=== PATIENT | female | born 1985 | race Caucasian/White ===

== ENCOUNTER → 2017-05-03 | Day surgery (SDC) | payer OTHER ==
[~2017-05-03] VITALS: Ht 157.5 cm; Wt 66.4 kg
[2017-05-03] VITALS (8 sets, daily range): BP systolic 99–127; BP diastolic 47–70; PULSE 86–93; RESP 14–20; O2SAT 97–100
[~2017-05-03] MED LIST: AGM875T PO; Atropine 0.4 mg/mL Inj IVPUSH PRN; Belladonna Alk-Opium 60 mg Rectal Suppository RECTAL ONE; Dexamethasone 4 mg/mL Inj IVPUSH PRN; EPHEDrine Sulfate 50 mg/mL Inj IVPUSH PRN; HYDR-4003 PO; HYDROmorphone 1 mg/mL Inj IVPUSH PRN; LEVO75TA4 PO; Labetalol 5 mg/mL 20 mL Inj IV PRN; Lactated Ringer's 1,000 ML IV ONE; Lactated Ringer's 1,000 ML IV SCH; Lactated Ringer's 500 ML IV PRN; ONDA4TAB6 PO; Ondansetron 2 mg/mL 2 mL Inj IVPUSH PRN; Ondansetron 2 mg/mL 2 mL Inj ONE; Phenylephrine 10,000 mCg/mL Inj IVPUSH PRN; Propofol 10 mg/mL 20 mL Inj ONE; fentaNYL-PF 50 mCg/mL 2 mL Inj IVPUSH PRN; fentaNYL-PF 50 mCg/mL 2 mL Inj ONE; hydrALAZINE 20 mg/mL Inj IVPUSH PRN; levoFLOXacin 500 mg/100 mL D5W Premix IV ONE
--- NOTE | 2017-05-03 16:34 | PCM.HPANE ---
Patient Data Surgeon Admitting Provider: Attending Provider:Fatuma Jung MD Primary Care Physician:Rosalina Bryant MD Other Provider:Gladis Perezingham Anesthesia Reason for Visit Rt Ureteral Stone Ht/WT & BMI Height (Feet): 5 Height (Inches): 2 Weight (Kilograms): 66.4 Body Mass Index 26.00 Allergies Coded Allergies: ciprofloxacin (Verified Allergy, Intermediate, RASH. HIVES, 05/03/17) Past Anesthesia History Anesthesia History: Denies:: Abnormal Airway, Anesthesia Reactions, Difficult Intubation, Fam Anesthesia Reaction, Fam Malignant Hypertherm, Malignant Hyperthermia Diabetes History Hx Diabetes?: No MRSA MRSA: No Medications Hypertension Medication: No Home Meds Incl Beta Kedar: No Reported Medications Amoxicillin/Clav K 875-125 mg 875 Mg Tab1 Tablet PO BID #20 TABLET Ref 0 05/03/17 Hydrocodone-Acetaminophen 5-325 mg 1 Each Tablet1 Tablet PO Q4H PRN For Pain Ref 0 05/03/17 Ondansetron (Zofran)4 Mg Tablet4 Mg PO Q4H PRN For Nausea 05/03/17 Levothyroxine 75 Mcg [id number] Mcg PO DAILY Ref 0 05/03/17 History History of ENT Problems?: No HEENT History: Denies:: Abnormal Airway Cataracts Difficult Intubation Dysphagia Glaucoma Hearing Problem Sinus Problem TMJ Denture Type: None Teeth Condition: Within Normal Limits Hx of Heart Problems?: No Cardiovascular History: Denies:: AICD Abdominal Aortic Aneurism Atrial Fibrillation Cardiac Surgery Chest Pain Congestive Heart Failure Coronary Artery Disease Edema Heart Murmur Hypertension Irregular Heartbeat Pacemaker Peripheral Vascular Rheumatic Fever Thrombophlebitis Valvular Heart Disease Hx of Respiratory Problem?: No Respiratory History: Positive for:: Asthma (EXERCISE INDUCED ASTHMA IN HIGH ALTITUDES) Denies:: COPD Chest Surgery Cough Dyspnea Emphysema Hemoptysis Oxygen Administration Pneumonia Pulmonary Embolism Tuberculosis Use of C-PAP Machine Use of Inhalers / NEBS Hx Neurologic Problems?: No Neurological History: Denies:: Alzheimer's Disease CVA Dementia Dizziness Headaches Multiple Sclerosis Parkinson's Disease Seizures TIA Hx of GI Problems?: No Hx of Problems?: No Genitourinary History: Positive for:: Kidney Stones (THIRD EPISODE IN 7 YEARS) Denies:: HX of Hemodialysis Urinary Tract Infection HX of Peritoneal Dialysis: No Female Hx: Denies:: Currently Endometriosis Pelvic Inflammatory Problems with Breasts? Skin History: Denies:: History Skin Disorders? Pressure Ulcers Hx Musculoskeletal Problems?: No Musculoskeletal History: Denies:: Back Injury Degenerative Joint Fibromyalgia Joint Replacement Musculoskeletal Trauma Myasthenia Gravis Osteoarthritis Rheumatoid Arthritis Systemic Lupus Hx of Psycho/Social Problems?: No Psycho Social History: Denies:: Anxiety Bipolar Disorder Hx Depression Suicide Attempt Hx Surgeries?: Yes Hx Any Other Health Problems?: No Other History: Positive for:: Hospitalization Thyroid Disease (HYPOTHRYOIDISM) Denies:: Cancer Endocrine Disease History Blood Transfusions: Positive for:: Accept Blood Products? Denies:: Blood Transfuse Reaction Blood Transfusions Hx Diabetes: No Hx Alcohol Use: Yes (SOCIALLY)Hx Substance Use: NoHave You Smoked inLast 12 mo : No Stop/Bang Risk Assessment Category Category 1A: Patient has history of documented sleep apnea, and HAS NOT received any narcotic, sedative or anesthesia administration during this stay. Category 1B: Patient has history of documented sleep apnea, and HAS received any narcotic , sedative or anesthesia administration during this stay Category 2: Patient has SUSPECTED Obstructive Sleep Apnea, and HAS received any narcotic , sedative or anesthesia administration during this stay. Category 3: Patient has SUSPECTED Obstructive Sleep Apnea and HAS NOT received narcotic, sedative or anesthesia administration during this stay. Category 4: Outpatient in Procedural Areas with known sleep apnea or who screen positive for High Risk via the STOP/BANG questionnaire. Exam Exam Vital Signs Vital Signs Date Time Temp Pulse Resp B/P Pulse Ox O2 Delivery O2 Flow Rate FiO2 05/03/17 14:00 36.8 87 14 127/69 100 Room Air General Appearance: Alert, Oriented X3, Cooperative HEENT/AIRWAY: MP 1, Neck Movement Lungs: Clear to Auscultation Heart: Exam Unremarkable Meds/Labs/Diagnostics Admission Meds Current Medications Acetaminophen 1000 mg 1,000 mg STK-MED ONCE IV Last administered on 05/03/17 16:27; Start 05/03/17 at 13:57; Stop 05/03/17 at 13:59; Status DC Lactated Ringer's (Lr) 1,000 ml @ ud STK-MED ONCE IV Last administered on 05/03 14:00; Start 05/03/17 at 14:00; Stop 05/03/17 at 14:23; Status DC Plan Impression Patient chart reviewed, patient interviewed and anesthestic plan with risks, benefits, and alternatives discussed, and informed consent obtained. ASA Physical Status: ASA1 Normal Healthy Anesthetic Plan: GA Bene/Risks/Altern/Consents: Yes HP Complete Prior to Induction: Yes Curtis Laureano MD May 03, 2017 16:34
--- NOTE | 2017-05-03 17:27 | PCM.ANEP1 ---
Post Anesthesia PACU Phase 1 Assessment Vital Signs Vital Signs Date Time Temp Pulse Resp B/P Pulse Ox O2 Delivery O2 Flow Rate FiO2 05/03/17 14:00 36.8 87 14 127/69 100 Room Air Anesthetic Administered: GA Level of Alertness: Awake, talking GUZMAN's with Equal Strength: Yes Pain: No Nausea or Vomiting: No CV Function & Hydration Stable: Yes Airway Device: Oxygen Delivery: Room Air Lungs: Clear to Auscultation PACU Phase 2 Assessment Complications: No Follow up Care: No Patient Instructions Provided: N/A Curtis Laureano MD May 03, 2017 17:27
--- NOTE | 2017-05-03 18:16 | OP ---
[address] [address] OPERATIVE REPORT PATIENT: SARA MICHEL : 1985 MR#: [id number] ADMIT: 05/03/2017 JOB ID: [id number] DATE OF SURGERY: 05/03/2017 SURGEON: Fatuma Jung MD ANESTHESIOLOGIST: Curtis Laureano MD ANESTHESIA: General. PREOPERATIVE DIAGNOSIS(ES): 1. Obstructing 8 mm right ureteropelvic junction calculus. 2. Right pyelonephritis (culture pending). POSTOPERATIVE DIAGNOSIS(ES): 1. Obstructing 8 mm right ureteropelvic junction calculus. 2. Right pyelonephritis (culture pending). OPERATION PERFORMED: 1. Cystoscopy and right ureteral stone manipulation without removal. 2. Placement of right ureteral stent (6-Czech x 22-32 cm multi-length). FINDINGS: Urethra normal. Bladder urothelium mildly hyperemic, with a moderate amount of amorphous debris suspended and lying dependently within the bladder. The ureteral orifices were grossly normal. No attempts were made to localize the stone, as she is grossly infected with evidence of pyelonephritis. PROCEDURE SUMMARY: The patient was positioned in supine and was administered general anesthesia. She was then repositioned in semilithotomy and the lower abdomen, genitalia, and groin were prepped and draped in sterile fashion. The 22-Czech panendoscope was then passed through the lower urinary tract with findings as described above. Next, a 0.35 Glidewire was advanced to the right collecting system under direct and fluoroscopic guidance. Over this, a 6-Czech x 22-32 cm multilength stent was selected and this was advanced over the wire and positioned in the right collecting system satisfactorily under direct and fluoroscopic guidance. NO RETRIEVAL LINE WAS LEFT ATTACHED. The bladder was then drained completely. All instrumentation removed. The patient was repositioned in supine. She was awakened, transferred to a gurney, and transferred to recovery in stable condition.
== END | disposition home or self-care (01) ==
LOC: SAS 13:15
PROVIDERS: ATTEND Specialist
DX: N20.1 Calculus of ureter (principal)
CPT/HCPCS: 52330; 52332; 76000; J0131; J2405; J2704; J3010; J7120

== ENCOUNTER → 2017-05-16 | Day surgery (SDC) | payer OTHER ==
[~2017-05-16] VITALS: Ht 157.5 cm; Wt 63.5 kg
[2017-05-16] VITALS (8 sets, daily range): BP systolic 108–123; BP diastolic 66–98; PULSE 80–89; RESP 7–17; O2SAT 97–99
[~2017-05-16] MED LIST changes: +Acetaminophen IV 1,000 MG in IV Premix 1 EACH IV ONE; +Albuterol-Ipratropium 3 mL Inhalation Solution NEB PRN; -Belladonna Alk-Opium 60 mg Rectal Suppository RECTAL ONE; +CeFAZolin Inj 2 GM in IV Premix 1 EACH IV ONE; +CeFAZolin Inj 2 gm / 50mL D5W IV ONE; +Dexamethasone 4 mg/mL Inj ONE; +Furosemide 10 mg/mL 2 mL Inj IV ONE; +LEVO500T79 PO; -Lactated Ringer's 1,000 ML IV ONE; +MetoCLOpramide 5 mg/mL 2 mL Inj IVPUSH PRN; +NORE1PAT7 TD; -Propofol 10 mg/mL 20 mL Inj ONE; +Propofol 10,000 mCg/mL 20 mL Inj ONE; -hydrALAZINE 20 mg/mL Inj IVPUSH PRN; -levoFLOXacin 500 mg/100 mL D5W Premix IV ONE
--- NOTE | 2017-05-16 08:46 | PCM.HPANE ---
Patient Data Surgeon Admitting Provider: Attending Provider:Fatuma Jung MD Primary Care Physician:Rosalina Bryant MD Other Provider:Iván Perez Anesthesia Reason for Visit Right Kidney Stone Ht/WT & BMI Height (Feet): 5 Height (Inches): 2 Weight (Kilograms): 66.4 Body Mass Index 26.00 Allergies Coded Allergies: ciprofloxacin (Verified Allergy, Intermediate, RASH. HIVES, 05/16/17) Past Anesthesia History Anesthesia History: Denies:: Abnormal Airway, Anesthesia Reactions, Difficult Intubation, Fam Anesthesia Reaction, Fam Malignant Hypertherm, Malignant Hyperthermia Diabetes History Hx Diabetes?: No MRSA MRSA: No Medications Hypertension Medication: No Home Meds Incl Beta Kedar: No Reported Medications Levofloxacin 500 Mg [id number] Mg PO DAILY 05/16/17 Norelgestromin/Ethin.estradiol (Xulane Patch)1 Each Patch.tdwk1 Each TD 05/16/17 Hydrocodone-Acetaminophen 5-325 mg 1 Each Tablet1 Tablet PO Q4H PRN For Pain Ref 0 05/03/17 Ondansetron (Zofran)4 Mg Tablet4 Mg PO Q4H PRN For Nausea 05/03/17 Levothyroxine 75 Mcg [id number] Mcg PO DAILY Ref 0 05/03/17 Discontinued Reported Medications Amoxicillin/Clav K 875-125 mg 875 Mg Tab1 Tablet PO BID #20 TABLET Ref 0 05/03/17 History History of ENT Problems?: No HEENT History: Denies:: Abnormal Airway Cataracts Difficult Intubation Dysphagia Hearing Problem Sinus Problem TMJ Denture Type: None Teeth Condition: Within Normal Limits Hx of Heart Problems?: No Cardiovascular History: Denies:: AICD Abdominal Aortic Aneurism Atrial Fibrillation Cardiac Surgery Chest Pain Congestive Heart Failure Edema Heart Murmur Hypertension Irregular Heartbeat Pacemaker Rheumatic Fever Thrombophlebitis Valvular Heart Disease Hx of Respiratory Problem?: No Respiratory History: Positive for:: Asthma (exercise induced ) Denies:: COPD Chest Surgery Cough Dyspnea Emphysema Hemoptysis Oxygen Administration Pneumonia Pulmonary Embolism Tuberculosis Use of C-PAP Machine Hx Neurologic Problems?: No Neurological History: Denies:: Alzheimer's Disease CVA Dementia Dizziness Headaches Multiple Sclerosis Parkinson's Disease Seizures Hx of GI Problems?: No Hx of Problems?: Yes Genitourinary History: Positive for:: Kidney Stones (right eswl current admission plan- surg here 04/2017) Denies:: HX of Hemodialysis Urinary Tract Infection HX of Peritoneal Dialysis: No Female Hx: Denies:: Currently (tubal) Endometriosis Pelvic Inflammatory Problems with Breasts? Skin History: Denies:: History Skin Disorders? Pressure Ulcers Hx Musculoskeletal Problems?: No Musculoskeletal History: Denies:: Back Injury Degenerative Joint Joint Replacement Musculoskeletal Trauma Systemic Lupus Hx of Psycho/Social Problems?: No Psycho Social History: Denies:: Anxiety Bipolar Disorder Hx Depression Suicide Attempt Hx Surgeries?: Yes (tubal) Hx Any Other Health Problems?: Yes Other History: Positive for:: Hospitalization Thyroid Disease (HYPOTHRYOIDISM) Denies:: Cancer Endocrine Disease History Blood Transfusions: Denies:: Blood Transfuse Reaction Blood Transfusions Hx Diabetes: No Hx Alcohol Use: YesHx Substance Use: No Smoking Status: Never Smoker Have You Smoked inLast 12 mo: No Stop/Bang S-Snoring: Do You Snore Loudly: No T-Tired: feel tired, fatigued: No O-Obsered: Observed not breath: No P-Blood Pressure: treated: No B- Body Mass Index > 35 kg/m2: No A- Age over 50: No N- Neck Large Circumference: No G- Gender Male: No SARITHA Total Score: 0 SARITHA Risk Assessment: Low Risk, <3 Yes Risk Assessment Category Category 1A: Patient has history of documented sleep apnea, and HAS NOT received any narcotic, sedative or anesthesia administration during this stay. Category 1B: Patient has history of documented sleep apnea, and HAS received any narcotic , sedative or anesthesia administration during this stay Category 2: Patient has SUSPECTED Obstructive Sleep Apnea, and HAS received any narcotic , sedative or anesthesia administration during this stay. Category 3: Patient has SUSPECTED Obstructive Sleep Apnea and HAS NOT received narcotic, sedative or anesthesia administration during this stay. Category 4: Outpatient in Procedural Areas with known sleep apnea or who screen positive for High Risk via the STOP/BANG questionnaire. Exam Exam General Appearance: Alert, Oriented X3, Cooperative, No Acute Distress HEENT/AIRWAY: MP 1 Lungs: Normal Air Movement Heart: Exam Unremarkable Plan Impression Patient chart reviewed, patient interviewed and anesthestic plan with risks, benefits, and alternatives discussed, and informed consent obtained. NPO per Anesth. Guidelines: Yes ASA Physical Status: ASA1 Normal Healthy Anesthetic Plan: GA Bene/Risks/Altern/Consents: Yes HP Complete Prior to Induction: Yes Rio York MD May 16, 2017 08:46
[2017-05-16] MEDS: Lactated Ringer's 1,000 ML IV SCH ×2 (13:38→14:48)
--- NOTE | 2017-05-16 16:13 | PCM.ANEP1 ---
Post Anesthesia PACU Phase 1 Assessment Vital Signs Vital Signs Date Time Temp Pulse Resp B/P Pulse Ox O2 Delivery O2 Flow Rate FiO2 05/16/17 16:11 89 7 123/68 97 Room Air 05/16/17 16:05 84 13 116/71 97 Room Air 05/16/17 16:00 87 14 108/70 99 Simple Mask 10 05/16/17 15:55 36.4 88 13 114/98 99 Simple Mask 10 05/16/17 13:47 36.6 81 16 116/66 98 Room Air Anesthetic Administered: GA Level of Alertness: Awake, talking GUZMAN's with Equal Strength: Yes Pain: No Nausea or Vomiting: No CV Function & Hydration Stable: Yes Airway Device: Oxygen Delivery: Room Air Lungs: Normal Air Movement Dermatome Level: Full Sensation PACU Phase 2 Assessment Complications: No Follow up Care: No Patient Instructions Provided: N/A Rio York MD May 16, 2017 16:13
--- NOTE | 2017-05-16 19:31 | OP ---
[address] [address] OPERATIVE REPORT PATIENT: SARA MICHEL : 1985 MR#: [id number] ADMIT: 05/16/2017 JOB ID: [id number] DATE OF SURGERY: 05/16/2017 SURGEON: Fatuma Jung MD ANESTHESIOLOGIST: Rio York MD PREOPERATIVE DIAGNOSIS(ES): 1. A 9 mm obstructing right proximal ureteral calculus. 2. History of right calculous pyelonephritis. 3. Indwelling retained right ureteral stent. POSTOPERATIVE DIAGNOSIS(ES): 1. A 9 mm obstructing right proximal ureteral calculus. 2. History of right calculous pyelonephritis. 3. Indwelling retained right ureteral stent. 4. Interval migration of the stone to the junction of the middle and distal 1/3, approximately the level of the iliac vessels. PROCEDURE PERFORMED: Right extracorporeal shockwave lithotripsy (ESWL) (power range 4-7 x2000 shocks in prone position). PROCEDURE SUMMARY: The patient was positioned in supine and was administered general anesthesia with LMA. The above-described stone was then localized and because of the interval migration she was provided GET anesthesia and she was then repositioned in prone and the above-described stone was localized in the XYZ plane. Lithotripsy was then commenced at minimal power level for 200 shocks, a 2 minute pause was then conducted, after which lithotripsy was then once again commenced and the power level gradually increased to a maximum of 7. A total of 2000 shocks were delivered with excellent evidence of stone comminution. The patient was then repositioned in supine, and then into semi lithotomy, and the lower abdomen, genitalia, and groin were then prepped and draped in sterile fashion. The 22-Yakut panendoscope was then passed through the lower urinary tract and using the foreign body graspers the stent was removed without incident. The patient was then repositioned supine and was awakened, transferred to a gurney, and transported to recovery in stable condition.
[2017-05-20 12:07] LABS: Stone Color Brown (.)
== END | disposition home or self-care (01) ==
LOC: SAS 13:10
PROVIDERS: ATTEND Specialist
DX: N13.5 Crossing vessel and stricture of ureter without hydronephrosis (principal); N12 Tubulo-interstitial nephritis, not specified as acute or chronic; Z87.440 Personal history of urinary (tract) infections
CPT/HCPCS: 50590; 52332; 82360; J0131; J0690; J1100; J1940; J2175; J2250; J2405; J2704; J3010; J7120